=== PATIENT | female | born 1980 ===

== ENCOUNTER 2020-08-16 14:32 | Outpatient (REF) | payer MEDICAID, OTHER, SELFPAY ==
--- NOTE | ~2020-08-16 | XR_ITS ---
EXAMINATION: XR HAND, RIGHT XR HAND, LEFT CLINICAL INFORMATION: Pain in all joints of both hands. COMPARISON: None TECHNIQUE: 3 views of each hand. FINDINGS: RIGHT HAND: No significant bone, joint or soft tissue abnormality is seen. LEFT HAND: No significant bone, joint or soft tissue abnormality is seen. XR/XR hand LT min 3V IMPRESSION: Normal hands. No evidence of arthritis.
--- NOTE | ~2020-08-16 | XR_ITS ---
EXAMINATION: XR HAND, RIGHT XR HAND, LEFT CLINICAL INFORMATION: Pain in all joints of both hands. COMPARISON: None TECHNIQUE: 3 views of each hand. FINDINGS: RIGHT HAND: No significant bone, joint or soft tissue abnormality is seen. LEFT HAND: No significant bone, joint or soft tissue abnormality is seen. XR/XR hand RT min 3V IMPRESSION: Normal hands. No evidence of arthritis.
[2020-08-16 15:12] LABS: MANUAL DIFF FLAG NO
[2020-08-16 15:15] LABS: Basophils Absolute Auto 0.1 X10*3/uL (0.0-0.2); Basophils Percent Auto 1.1 % (0-2); Eosinophils Absolute Auto 0.1 X10*3/uL (0.0-0.4); Eosinophils Percent Auto 1.9 % (0-4); Hematocrit 37.7 % (37-47); Hemoglobin 13.1 g/dl (12.0-16.0); Imm Gran Abs Auto 0.02 X10*3/uL (0.00-0.03); Imm Gran Pct Auto 0.3 % (0.0-0.4); Lymphocytes Absolute Auto 2.8 X10*3/uL (1.2-4.9); Lymphocytes Percent Auto 38.5 % (20-40); Mean Corpuscular HGB Conc 34.7 g/dl (31.0-35.0); Mean Corpuscular Hemoglobin 31.7 pg (27.0-33.0); Mean Corpuscular Volume 91.3 fL (80-98); Mean Platelet Volume 9.7 fL (9.4-12.3); Monocytes Absolute Auto 0.5 X10*3/uL (0.1-1.2); Monocytes Percent Auto 7.5 % (2-11); Neutrophils Absolute Auto 3.7 X10*3/uL (2.0-8.3); Neutrophils Percent Auto 50.7 % (45-73); Platelet Count 298 X10*3/uL (160-400); Red Blood Count 4.13 X10*6/uL (4.20-5.50); Red Cell Distribution Width 11.9 % (11.0-16.0); White Blood Count 7.2 X10*3/uL (4.8-10.8)
[2020-08-16 15:16] LABS: Glucose Urine UA NEG (NEG); Leukocyte Esterase Urine NEG (NEG); Nitrite Urine NEG (NEG); Specific Gravity - Urine >= 1.030 (1.005-1.025); Urine Blood NEG (NEG); Urine Ketones NEG (NEG); Urine Protein TRACE MG/DL (NEG-TRACE)
[2020-08-16 15:17] LABS: Appearance Urine HAZY; Color Urine YELLOW
[2020-08-16 15:37] LABS: Alanine Aminotransferase 15 U/L (0-31); Albumin Level 4.1 g/dL (3.5-5.0); Alkaline Phosphatase 58 U/L (39-117); Anion Gap 10 (12-20); Aspartate Amino Transferase 21 U/L (5-31); Bilirubin Total 0.7 mg/dL (0.0-1.0); Blood Urea Nitrogen 19 mg/dL (9-16); Calcium 9.3 mg/dL (8.4-10.2); Carbon Dioxide 26 mmol/L (22-29); Chloride 108 mmol/L (96-108); Estimated Glomerular Filt Rate > 60; Glucose Random 85 mg/dL (60-115); Rheumatoid Factor < 15.0 IU/mL (<15.0); Sodium 140 mmol/L (135-145); Total Protein 7.3 g/dL (6.5-8.0)
[2020-08-16 15:57] LABS: TSH reflex Free T4 1.62 uIU/mL (0.32-4.0)
[2020-08-16 15:58] LABS: Erythrocyte Sedimentation Rate 17 MM/HR (0-20)
[2020-08-18 13:41] LABS: Anti Nuclear Antibody Screen NEGATIVE (NEGATIVE)
== END 2020-08-16 14:33 | disposition home or self-care (01) ==
LOC: HO.LAB 14:32
PROVIDERS: Absent Provider Student in an Organized Health Care Education/Training Program; PCP Student in an Organized Health Care Education/Training Program; Visit Provider General Practice
DX: M25.541 Pain in joints of right hand (principal); M25.542 Pain in joints of left hand
CPT/HCPCS: 36415; 73130; 80053; 81003; 84443; 85025; 85652; 86038; 86039; 86431

== ENCOUNTER 2022-10-09 11:32 | Outpatient (REF) | payer MEDICAID, OTHER, SELFPAY ==
[2022-10-09 15:39] LABS: Anion Gap 14 (12-20); Blood Urea Nitrogen 18 mg/dL (9-16); Calcium 9.5 mg/dL (8.4-10.2); Carbon Dioxide 20 mmol/L (22-29); Chloride 111 mmol/L (96-108); Estimated Glomerular Filt Rate > 60; Glucose Fasting 76 mg/dL (60-99); Potassium 3.6 mmol/L (3.3-5.1); Sodium 141 mmol/L (135-145)
[2022-10-09 15:43] LABS: TSH reflex Free T4 1.96 uIU/mL (0.32-4.0)
== END 2022-10-09 11:33 | disposition home or self-care (01) ==
LOC: HO.CHCLDS 11:32
PROVIDERS: Visit Provider Internal Medicine
DX: G47.9 Sleep disorder, unspecified (principal)
CPT/HCPCS: 36415; 80048; 84443

== ENCOUNTER 2022-12-18 14:26 | Outpatient (REF) | payer MEDICAID, OTHER, SELFPAY ==
--- NOTE | ~2022-12-18 | MM_ITS ---
EXAMINATION: MM SCREENING DIGITAL BREAST TOMOSYNTHESIS, BILATERAL WITH BILATERAL BREAST IMPLANTS. CLINICAL INFORMATION: Screening. Asymptomatic. COMPARISON: Mammography: This study is compared with prior examinations dating back to 2018. TECHNIQUE: Digital mammography is performed in craniocaudal and mediolateral oblique views along with computer-aided detection (CAD). Digital breast tomosynthesis is performed in implant-displaced craniocaudal and implant-displaced mediolateral oblique views along with computer-aided detection (CAD). Synthesized 2D images are generated from the tomosynthesis. FINDINGS: The breasts are heterogeneously dense, which may obscure small masses (ACR BI-RADS breast composition Category c). There are no significant masses, abnormal calcifications, or other abnormalities. There are unchanged, scattered benign calcifications in the left breast. MM/MM tomosynthesis screen imp BI IMPRESSION: No mammographic signs of malignancy. ASSESSMENT: BI-RADS BI-RADS 2 - Benign Findings RECOMMENDATION: Routine annual mammography screening. 1 year F/U This patient's information was entered into a reminder system with a target due date for their next mammogram.
== END 2022-12-18 14:27 | disposition home or self-care (01) ==
LOC: HO.MAMMO 14:26
PROVIDERS: Visit Provider Student in an Organized Health Care Education/Training Program
DX: Z12.31 Encounter for screening mammogram for malignant neoplasm of breast (principal)
CPT/HCPCS: 77063; 77067

== ENCOUNTER → 2022-12-18 14:45 | Outpatient (BNV) | payer SELFPAY | PROVIDERS: Visit Provider Radiology Diagnostic Radiology | DX: Z12.31 Encounter for screening mammogram for malignant neoplasm of breast (principal) | CPT/HCPCS: 77063; 77067 ==

== ENCOUNTER 2023-05-06 19:17 | Emergency (ER) | payer MEDICAID, OTHER, SELFPAY ==
[2023-05-06 19:27] VITALS: BP 122/74; PULSE 103; RESP 18; TEMP 37.9; O2SAT 98; BMI 27.3
--- NOTE | 2023-05-06 19:44 | ED.URI ---
HPI - URI/Sore Throat General Chief Complaint: Upper Respiratory Symptoms Stated Complaint: fever/sore throat/body aches/headache Time Seen by Provider: 05/06/23 19:44 Source: patient Mode of arrival: ambulatory Limitations: no limitations History of Present Illness HPI Narrative: Patient is a 42-year-old female who presents emergency department for evaluation of body aches, sore throat, tactile fever, chills, cough x3 days. Denies headache, dizziness, neck pain, neck stiffness, chest pain, shortness of breath, difficulty breathing, nausea, vomiting, abdominal pain, numbness or tingling of the extremities, genitourinary symptoms. Related Data Previous Rx's Medication Instructions Recorded amoxicillin 500 mg tablet 1,000 mg (2 x 500 mg) PO DAILY 10 05/06/23 days #20 tabs Allergies Allergy/AdvReac Type Severity Reaction Status Date / Time No Known Allergies Allergy Verified 05/06/23 19:26 [No Known Allergies*] Review of Systems Review of Systems: Yes all other systems are reviewed and are negative [facility] Past Medical History Attestation statement: The following information was validated with the patient. Source: old records reviewed Social History Social History Advance Directives: No Advance Directives Information Provided: No Physical Exam Vital Signs: Vital Signs: Last Vital Signs Temp 100.2 F 05/06/23 19:27 Pulse 103 H 05/06/23 19:27 Resp 18 05/06/23 19:27 BP 122/74 05/06/23 19:27 Pulse Ox 98 05/06/23 19:27 O2 Del Method Room Air 05/06/23 19:27 BMI result Body Mass Index 27.3 Appearance: Alert.?Oriented to person, place and time. No acute distress.?Normal affect. Eyes: Pupils equal, round and reactive to light.? ENT: TM normal bilaterally. Pharynx normal.?? Neck: Normal inspection.? Neck supple.??No cervical adenopathy CVS: Heart sounds normal. Normal heart rate and rhythm.? Pulses normal.?? Respiratory: No respiratory distress.? Lung sounds clear to auscultation bilaterally?? Abdomen: Soft and non-tender. Normoactive bowel sounds. Skin: Skin warm and dry.? Normal skin color.? ? Extremities: No lower extremity edema.? Neuro: Moves all extremities spontaneously. Sensation intact bilaterally. No motor deficits. Ambulates with normal steady gait. Medications Administered Discontinued Medications Generic Name Dose Route Start Last Admin Trade Name Karma PRN Reason Stop Dose Admin Amoxicillin 1,000 mg 05/06/23 20:30 05/06/23 20:43 Amoxicillin 500 Mg Capsule PO 05/06/23 20:31 1,000 mg ONCE ONE Administration Medical Decision Making Medical Decision Making [facility] Narrative: Patient is a 42-year-old female, presenting for evaluation of upper respiratory symptoms. COVID-19/influenza/RSV testing negative. Strep A testing positive, no evidence of peritonsillar or retropharyngeal abscess. At this time history and physical exam not consistent with ACS/PE/pneumonia. Well-appearing, nontoxic, afebrile, no tachycardia or tachypnea/hypoxia. Speaking clear full sentences, ambulatory with steady gait. Discussed conservative treatment including rest, hydration, Tylenol/ibuprofen as needed for fever and body aches, saline nasal spray, humidifier, [id number] cold medication. Advised to follow-up with primary care provider as needed, discussed reasons to return back to the emergency department. All questions were answered. Patient discharged home in stable condition. Provided with a return to work/school note. Offered Tamiflu Offered monoclonal antibody Differential Diagnosis Differential Diagnoses: The differential diagnosis associated with the presentation includes ( See narrative above) Admission/Observation Consideration of admission/observation: Escalation of care including admission/observation considered ( see narrative above) Lab Data [facility] Lab Attestation statement: I reviewed the patient's lab results. ( see narrative above) Labs: Lab Results 05/06/23 05/06/23 Range/Units 19:49 20:09 Influenza Type A (PCR) NEGATIVE (Negative) Influenza Type B (PCR) NEGATIVE (Negative) RSV RNA Qual (PCR) NEGATIVE (Negative) SARS-CoV-2 RNA (RT-PCR) NEGATIVE (Negative) S. pyogenes GrpA EVELIO Positive A (Negative) Prescription Management I considered prescription management with: Pain Medication ( acetaminophen/ibuprofen) Discharge Plan Discharge Clinical Impression: Acute streptococcal pharyngitis Patient Disposition: Home, Self-Care Instructions: Strep Throat (ED) Additional Instructions: COVID, flu, RSV are all negative. Strep is positive Complete the entire course of antibiotics as prescribed. You can take ibuprofen 200 mg, 3 tablets (600mg) every 6-8 hours as needed for pain, in addition to Tylenol 500 mg, 2 tablets (1,000mg) every 4-6 hours as needed for pain, but not to exceed 3 doses daily (3,000mg).? Follow-up with your primary care provider. Return back to emergency department any new or worsening symptoms or concerns. Prescriptions: New amoxicillin 500 mg tablet 1,000 mg PO DAILY 10 Days Qty: 20 0RF Referrals: Sabi Verduzco MD [Primary Care Provider] - Interventions: ED Discharge Assessment Last Done: 05/06/23 20:47 Discharge Date/Time: 05/06/23 20:48
[2023-05-06 20:19] LABS: IDNOW Serial# 6674DD1D; Strep A Nucleic Acid Positive (Negative)
[2023-05-06 20:29] LABS: Influenza A PCR NEGATIVE (Negative); Influenza B PCR NEGATIVE (Negative); Resp Syncy Virus RNA Qual PCR NEGATIVE (Negative); SARS COV2 PCR INHOUSE NEGATIVE (Negative)
[2023-05-06] MEDS: Amoxicillin 500 MG CAPSULE 1000 MG PO (20:43)
== END 2023-05-06 20:48 | disposition home or self-care (01) ==
PROVIDERS: Nurse Practitioner Family; Emergency Provider Emergency Medicine; PCP Student in an Organized Health Care Education/Training Program
DX: J02.0 Streptococcal pharyngitis (principal); R50.9 Fever, unspecified; J02.9 Acute pharyngitis, unspecified; M79.10 Myalgia, unspecified site; R51.9 Headache, unspecified; Z11.52 Encounter for screening for COVID-19; Z20.822 Contact with and (suspected) exposure to COVID-19
CPT/HCPCS: 0241U; 87651; 99283

== ENCOUNTER 2023-05-26 12:14 | Emergency (ER) | payer MEDICAID, OTHER, SELFPAY ==
--- NOTE | ~2023-05-26 | XR_ITS ---
EXAMINATION: XR CHEST CLINICAL INFORMATION: Reason for Exam right mid back pain COMPARISON: None TECHNIQUE: 2 views of the chest FINDINGS: Lines and tubes: None. Clear lungs. No pleural effusion. No pneumothorax. Normal cardiomediastinal silhouette. Visualized vertebral body heights and disc space heights appear maintained. XR/XR chest 2V IMPRESSION: 1. Clear lungs. 2. Visualized vertebral body heights and disc space heights appear maintained.
--- NOTE | ~2023-05-26 | CT_ITS ---
EXAMINATION: CT ABDOMEN AND PELVIS WITHOUT CONTRAST CLINICAL INFORMATION: Right flank pain COMPARISON: None available. TECHNIQUE: Multidetector volumetric imaging was performed from the superior aspect of the liver through the pubic symphysis. Sagittal and coronal reformatted images were obtained on the technologist's workstation. This CT examination was performed using dose optimization techniques as appropriate, variously including the following: *Automated exposure control *Adjustment of mA and/or kV according to patient size (this includes techniques or standardized protocols for targeted exams where dose is matched to indication/reason for exam; i.e. extremities or head) *Use of iterative reconstruction technique DLP: 473 mGy-cm FINDINGS: LUNG BASES: Unremarkable. ABDOMINAL AND PELVIC WALL: Bilateral breast prostheses. LIVER AND BILIARY TREE: Calcified left hepatic lobe granuloma. Liver is enlarged measuring 18.2 cm in span. GALLBLADDER: Unremarkable. PANCREAS: Unremarkable. SPLEEN: Unremarkable. ADRENAL GLANDS: Unremarkable. KIDNEYS AND URETERS: No hydronephrosis or nephrolithiasis. GASTROINTESTINAL TRACT: Large and small bowel is unremarkable. Normal appendix. VASCULAR: Unremarkable. LYMPH NODES/PERITONEUM: No lymphadenopathy. FREE FLUID: None. BLADDER: Unremarkable. PELVIC VISCERA: Uterus is retroflexed in position. Nabothian cyst in the cervix. OSSEOUS STRUCTURES: Unremarkable. CT/CT abdomen pelvis wo IV con IMPRESSION: 1. No hydronephrosis or nephrolithiasis. 2. Hepatomegaly.
[2023-05-26 12:33] VITALS: BP 134/89; PULSE 91; RESP 18; TEMP 36.4; O2SAT 98; BMI 28.3
--- NOTE | 2023-05-26 12:33 | ED_ITS ---
HPI - General Adult General Chief complaint: Back Pain/Injury Stated complaint: Back pain Time Seen by Provider: 05/26/23 13:52 Source: patient Mode of arrival: ambulatory Limitations: no limitations History of Present Illness HPI narrative: 42 year old female with no significant pmhx presents to the ED today for evaluation of right flank pain x5 days. Admits the pain has been constant, now worsening, prompting her to come in for evaluation. The pain is now radiating to her RUQ. Pain is exacerbated with movement, taking a deep breath in, and lying down. Denies trauma or injury to the area. She has not been taking any OTC pain medications at home. Denies every having these symptoms in the past. Denies history of kidney stones. Denies fever, chills, N/V, diarrhea, dysuria, hematuria, urinary frequency or urgency, back pain, LE pain/ swelling. Endorses constipation at baseline which is not new. Admits she was diagnosed with strep pharyngitis 3 weeks ago and has since completed her antibiotics. Denies sore throat, odynophagia, dysphagia or rash. Related Data Previous Rx's Medication Instructions Recorded amoxicillin 500 mg tablet 1,000 mg (2 x 500 mg) PO DAILY 10 05/06/23 days #20 tabs cyclobenzaprine 5 mg tablet 5 mg PO BEDTIME PRN muscle spasm 05/26/23 #7 tabs lidocaine 5 % topical patch 1 patch topical DAILY #15 ea 05/26/23 (Lidoderm) Allergies Allergy/AdvReac Type Severity Reaction Status Date / Time No Known Allergies Allergy Verified 05/06/23 19:26 [No Known Allergies*] Review of Systems 2 Review of Systems: Constitutional: No fever, chills, fatigue, night sweats, weight changes ENT/Mouth: No ear pain, hearing loss, nasal congestion, sinus pain, rhinorrhea, sore throat Eyes: No eye pain, swelling, redness, vision changes, discharge Cardio: No chest pain, palpitations, [place], orthopnea, peripheral edema Pulm: No SOB, cough, sputum, wheezing, dyspnea, hemoptysis GI: No nausea, vomiting, hematemesis, abdominal pain, diarrhea, constipation, hematochezia, melena : No irregular bleeding, dysuria, frequency, urgency, hesitancy, hematuria, urinary flow changes, urinary incontinence or retention, +right flank pain MSK: No back pain, neck pain, joint pain, myalgias Skin: No lesions, rashes Neuro: No weakness, numbness, paresthesias, LOC, dizziness, headache Psych: No anxiety/panic, depression, SI/HI, AH/VH All other systems reviewed and are negative. [facility] Past Medical History Attestation statement: The following information was validated with the patient. Source: old records reviewed and nursing notes reviewed Social History Social History Advance Directives: No Advance Directives Information Provided: No Physical Exam ED Vital Signs: Vital Signs - 24 hr 05/26/23 12:33 Temperature 97.5 F Pulse Rate 91 Respiratory Rate 18 Blood Pressure 134/89 Pulse Oximetry 98 Oxygen Delivery Method Room Air BMI result Body Mass Index 28.3 vital signs stable Const General: cooperative, healthy appearing, comfortable and no acute distress Nutritional Appearance: average body habitus Orientation/consciousness: patient oriented x3 Limitations: no limitations HENMT Other: + posterior oropharynx without erythema or edema, no tonsillar exudates, uvula midline Head: Yes normal to inspection, Yes normocephalic and Yes atraumatic Eyes General: appearance normal, both eyes and all related structures Conjunctivae: conjunctivae normal Sclerae: sclerae normal Pupils: Equal, round and reactive pupils present Neck Other: + no midline cervical spinous tenderness or step off deformity Neck: Yes normal visual inspection, Yes full ROM, Yes no lymphadenopathy and Yes no meningeal signs Chest Chest palpation & inspection: normal inspection of the chest, normal palpation of entire chest wall, no crepitus and no tenderness Resp Effort & Inspection: normal respiratory effort, able to speak in complete sentences and symmetric chest movement Auscultation: clear to auscultation bilaterally Cardio Rate: regular rate Rhythm: regular rhythm GI Other: + abd soft, ND/NT, no rebound or guarding. negative rovsing and mcburney point tenderness. negative miller sign. normoactive bs x4. no hepatosplenomegaly. Inspection: Yes normal to inspection General: Yes no CVA tenderness Back/Spine/Pelvis Other: + no midline spinous tenderness or step off deformity. there is both thoracic and lumbar spinous muscle tenderness to palpation. no palpable masses or warmth. Back: no CVA tenderness Skin General skin exam: no rashes or lesions noted Neuro Other: Strength 5/5 intact throughout.?No saddle anesthesia.?Sensation intact to light touch.?Neurovascular intact distally.? General: patient oriented x3, gait normal and no meningeal signs Cranial nerves: Yes Equal, round and reactive pupils present Gait exam (Neuro): Normal gait present Motor exam (neuro): 5/5 motor strength present throughout Extrem General: Yes normal to inspection, Yes full ROM, Yes capillary refill normal and Yes no calf tenderness Course Course Course Narrative: This is a rapid medical exam: Additional HPI, ROS, PE not included below will be deferred to primary provider. Patient is a 42-year-old female presenting to the ED with complaint of right mid back pain for the past 5 days. Radiates to lower back. Worse with inspiration. Worst when getting up in the morning and going to bed at night. Denies fall or heavy lifting. Symptoms began after having strep. Denies dysuria. Plan: labs, UA Reevaluation(s) Reevaluation #1: 1715- CBC without leukocytosis or left shift. No anemia. H&H stable. No acute electrolyte abnormality requiring intervention. BUN slightly elevated to 18 however creatinine wnl. normal liver function. negative for covid, flu, rsv. Chest xray is unremarkable > no evidence of acute fib fracture, pneumonia or pneumo. CT abd/ pelvis without renal/ ureteral stone. no hydronephrosis. UA without infection or blood. Renal stone unlikely however cannot definitively be excluded. PERC score of 0- unlikely PE. >> On re-evaluation, patient reports almost complete resolution of pain with flexeril and lido patch > I suspect pain is muscular in etiology. Discussed all work up results with patient. she is ambulating with steady gait in ED and moving without discomfort. Patient has remained stable throughout ED visit today. Discussed worrisome signs and symptoms and when to return to the ED. All questions answered at this time. Patient is agreeable with disposition and stable for discharge. Medications Administered Discontinued Medications Generic Name Dose Route Start Last Admin Trade Name Freq PRN Reason Stop Dose Admin Cyclobenzaprine HCl 10 mg 05/26/23 14:20 05/26/23 14:27 Cyclobenzaprine Hcl 10 Mg Tablet PO 05/26/23 14:21 10 mg ONCE ONE Administration Sodium Chloride 1,000 mls @ 999 mls/hr 05/26/23 14:30 05/26/23 16:25 Ns IV 05/26/23 15:30 Infused .Q1H1M CONRADO Infusion Ketorolac Tromethamine 30 mg 05/26/23 14:22 05/26/23 14:27 Ketorolac Tromethamine 30 Mg/Ml Vial IM 05/26/23 14:23 30 mg ONCE ONE Administration Medical Decision Making Medical Decision Making [facility] Narrative: 42 year old female with no significant pmhx presents to the ED today for evaluation of right flank pain x5 days. Vital signs stable. Patient is nontoxic appearing and in NAD. No CVAT b/l. Abdomen is soft, ND/NT, no rebound or guarding. normoactive BS x4. Negative Miller sign. negative rovsing and mcburney point tenderness. No midline spinous tenderness. There right thoracic/lumbar paraspinal muscle tenderness. no palpable masses or warmth. no midline spinous tenderness or step off deformity. Differential diagnosis includes lumbar or thoracic sprain/ strain, renal colic, nephrolithiasis, urinary tract infection. Unlikely PE, ACS, arrhythmia, obstructive uropathy, spinal fracture, cauda equina, cord compression, epidural abscess. Plan for labs, UA, imaging. Differential Diagnosis Differential Diagnoses: The differential diagnosis associated with the presentation includes as above. Admission/Observation Not indicated Lab Data [facility] Lab Attestation statement: I reviewed the patient's lab results. as above. 05/26/23 12:50 05/26/23 12:50 Labs: Lab Results 05/26/23 05/26/23 Range/Units 12:50 14:23 WBC 9.6 (4.8-10.8) X10*3/uL RBC 4.42 (4.20-5.50) X10*6/uL Hgb 13.8 (12.0-16.0) g/dl Hct 39.0 (37.0-47.0) % MCV 88.2 (80.0-98.0) fL MCH 31.2 (27.0-33.0) pg MCHC 35.4 H (31.0-35.0) g/dl RDW 12.3 (11.0-16.0) % Plt Count 335 (160-400) X10*3/uL MPV 9.3 L (9.4-12.3) fL Immature Gran % (Auto) 0.2 (0.0-0.4) % Neut % (Auto) 61.1 (45-73) % Lymph % (Auto) 30.8 (20-40) % Ware % (Auto) 6.4 (2-11) % Eos % (Auto) 0.9 (0-4) % Baso % (Auto) 0.6 (0-2) % Lymph # (Auto) 2.9 (1.2-4.9) X10*3/uL Ware # (Auto) 0.6 (0.1-1.2) X10*3/uL Eos # (Auto) 0.1 (0.0-0.4) X10*3/uL Baso # (Auto) 0.1 (0.0-0.2) X10*3/uL Abs Immat Gran (auto) 0.02 (0.00-0.03) X10*3/uL Absolute Neuts (auto) 5.8 (2.0-8.3) x10*3/uL Absolute Nucleated RBC 0.000 (0.0-0.012) X10*3/uL Nucleated RBC % (auto) 0.0 (0.0-0.2) /100WBC PT 11.3 (11.1-13.3) SEC INR 0.9 (0.9-1.1) Sodium 139 (135-145) mmol/L Potassium 3.9 (3.3-5.1) mmol/L Chloride 109 H (96-108) mmol/L Carbon Dioxide 22 (22-29) mmol/L Anion Gap 12 (12-20) BUN 18 H (9-16) mg/dL Creatinine 0.71 (0.5-1.4) mg/dL Estim Creat Clear Calc 96.6 Estimated GFR > 60 Random Glucose 104 (60-115) mg/dL Calcium 9.3 (8.4-10.2) mg/dL Total Bilirubin 0.5 (0.0-1.0) mg/dL AST 19 (5-31) U/L ALT 14 (0-31) U/L Alkaline Phosphatase 61 (39-117) U/L Total Protein 8.1 H (6.5-8.0) g/dL Albumin 4.1 (3.5-5.0) g/dL Beta HCG, Quant < 2 mIU/mL Urine Color Dark Yellow Urine Appearance Clear Urine pH 5.0 (5.0-9.0) Ur Specific [place] >= 1.030 H (1.005-1.025) Urine Protein Trace (Neg-Trace) mg/dL Urine Glucose (UA) Negative (Negative) mg/dL Urine Ketones Trace (Negative) mg/dL Urine Blood Negative (Negative) Urine Nitrite Negative (Negative) Ur Leukocyte Esterase Negative (Negative) Influenza Type A (PCR) NEGATIVE (Negative) Influenza Type B (PCR) NEGATIVE (Negative) RSV RNA Qual (PCR) NEGATIVE (Negative) SARS-CoV-2 RNA (RT-PCR) NEGATIVE (Negative) Independent Interpretation I performed an independent interpretation of an: Plain X-Ray and CT Scan Interpretation: I have reviewed cxr and agree with radiologist's interpretation. I have reviewed CT scan and agree with radiologist's interpretation. Radiology Impression Discussion of test interpretation with radiology: I have reviewed the radiologist's reading. Radiologist Impression: EXAMINATION: CT ABDOMEN AND PELVIS WITHOUT CONTRAST CLINICAL INFORMATION: Right flank pain COMPARISON: None available. TECHNIQUE: Multidetector volumetric imaging was performed from the superior aspect of the liver through the pubic symphysis. Sagittal and coronal reformatted images were obtained on the technologist's workstation. This CT examination was performed using dose optimization techniques as appropriate, variously including the following: *Automated exposure control *Adjustment of mA and/or kV according to patient size (this includes techniques or standardized protocols for targeted exams where dose is matched to indication/reason for exam; i.e. extremities or head) *Use of iterative reconstruction technique DLP: 473 mGy-cm FINDINGS: LUNG BASES: Unremarkable. ABDOMINAL AND PELVIC WALL: Bilateral breast prostheses. LIVER AND BILIARY TREE: Calcified left hepatic lobe granuloma. Liver is enlarged measuring 18.2 cm in span. GALLBLADDER: Unremarkable. PANCREAS: Unremarkable. SPLEEN: Unremarkable. ADRENAL GLANDS: Unremarkable. KIDNEYS AND URETERS: No hydronephrosis or nephrolithiasis. GASTROINTESTINAL TRACT: Large and small bowel is unremarkable. Normal appendix. VASCULAR: Unremarkable. LYMPH NODES/PERITONEUM: No lymphadenopathy. FREE FLUID: None. BLADDER: Unremarkable. PELVIC VISCERA: Uterus is retroflexed in position. Nabothian cyst in the cervix. OSSEOUS STRUCTURES: Unremarkable. CT/CT abdomen pelvis wo IV con IMPRESSION: 1. No hydronephrosis or nephrolithiasis. 2. Hepatomegaly EXAMINATION: XR CHEST CLINICAL INFORMATION: Reason for Exam right mid back pain COMPARISON: None TECHNIQUE: 2 views of the chest FINDINGS: Lines and tubes: None. Clear lungs. No pleural effusion. No pneumothorax. Normal cardiomediastinal silhouette. Visualized vertebral body heights and disc space heights appear maintained. XR/XR chest 2V IMPRESSION: 1. Clear lungs. 2. Visualized vertebral body heights and disc space heights appear maintained. Independent Historian Clinical information obtained from an independent historian. History obtained from or confirmed by: Spouse () External Record Review External record reviewed: Inpatient record Prescription Management I considered prescription management with: Pain Medication and Other (muscle relaxer) Social Determinants Patient?s care significantly limited by Social Determinants of Health including: Other Social Determinant of Health Critical Care Time Critical Care Time Critical Care Time: No Discharge Plan Discharge Clinical Impression: Strain of thoracic back region, Strain of lumbar paraspinous muscle Patient Disposition: Home, Self-Care Instructions: Muscle Strain (ED), Back Pain (ED), Lower Back Exercises (ED) Additional Instructions: Your lab work today is reassuring. Your urine is negative for infection. You tested negative for COVID, influenza, RSV. The chest x-ray is normal. As discussed, CT scan of your abdomen shows enlarged liver with calcifications. You have been advised to follow-up with your primary care provider regarding this. Avoid bending, lifting, or twisting. Use ice several times per day for 20 minutes at a time for the next 48 hours and then change to heat. Flexeril is a muscle relaxer. Take this at night as it makes you drowsy. Do not drive, drink alcohol, or operate machinery while taking it. Lidoderm patches are numbing patches. Apply to painful areas. In addition you may take Tylenol at home. Follow up with your primary care provider as needed If your pain worsens, if you develop new numbness, tingling, weakness, loss of bowel or bladder function call 911 or return to the ER immediately for evaluation. Prescriptions: New cyclobenzaprine 5 mg tablet 5 mg PO BEDTIME PRN (Reason: muscle spasm) Qty: 7 0RF lidocaine [Lidoderm] 5 % adhesive patch,medicated 1 patch topical DAILY Qty: 15 0RF Rx Instructions: leave on most painful area for up to 12 hrs No Action amoxicillin 500 mg tablet 1,000 mg PO DAILY 10 Days Qty: 20 0RF Interventions: ED Discharge Assessment Last Done: 05/26/23 17:24 Discharge Date/Time: 05/26/23 17:25
[2023-05-26 12:55] LABS: MANUAL DIFF FLAG NO
[2023-05-26 12:56] LABS: Basophils Absolute Auto 0.1 X10*3/uL (0.0-0.2); Basophils Percent Auto 0.6 % (0-2); Eosinophils Absolute Auto 0.1 X10*3/uL (0.0-0.4); Eosinophils Percent Auto 0.9 % (0-4); Hemoglobin 13.8 g/dl (12.0-16.0); Imm Gran Abs Auto 0.02 X10*3/uL (0.00-0.03); Imm Gran Pct Auto 0.2 % (0.0-0.4); Lymphocytes Absolute Auto 2.9 X10*3/uL (1.2-4.9); Lymphocytes Percent Auto 30.8 % (20-40); Mean Corpuscular HGB Conc 35.4 g/dl (31.0-35.0); Mean Corpuscular Hemoglobin 31.2 pg (27.0-33.0); Mean Corpuscular Volume 88.2 fL (80.0-98.0); Mean Platelet Volume 9.3 fL (9.4-12.3); Monocytes Absolute Auto 0.6 X10*3/uL (0.1-1.2); Monocytes Percent Auto 6.4 % (2-11); Neutrophils Absolute Auto 5.8 x10*3/uL (2.0-8.3); Neutrophils Percent Auto 61.1 % (45-73); Platelet Count 335 X10*3/uL (160-400); Red Blood Count 4.42 X10*6/uL (4.20-5.50); Red Cell Distribution Width 12.3 % (11.0-16.0); White Blood Count 9.6 X10*3/uL (4.8-10.8)
[2023-05-26 13:04] LABS: INTERNATIONAL NORM RATIO 0.9 (0.9-1.1); Prothrombin Time 11.3 SEC (11.1-13.3)
[2023-05-26 13:14] LABS: Alanine Aminotransferase 14 U/L (0-31); Albumin Level 4.1 g/dL (3.5-5.0); Alkaline Phosphatase 61 U/L (39-117); Anion Gap 12 (12-20); Aspartate Amino Transferase 19 U/L (5-31); Bilirubin Total 0.5 mg/dL (0.0-1.0); Blood Urea Nitrogen 18 mg/dL (9-16); Calcium 9.3 mg/dL (8.4-10.2); Carbon Dioxide 22 mmol/L (22-29); Chloride 109 mmol/L (96-108); Creatinine Clr Calc Pharmacy 96.6; Estimated Glomerular Filt Rate > 60; Glucose Random 104 mg/dL (60-115); Potassium 3.9 mmol/L (3.3-5.1); Sodium 139 mmol/L (135-145); Total Protein 8.1 g/dL (6.5-8.0)
[2023-05-26 13:21] LABS: HCG Quantitative < 2 mIU/mL
[2023-05-26 13:37] LABS: Influenza A PCR NEGATIVE (Negative); Influenza B PCR NEGATIVE (Negative); Resp Syncy Virus RNA Qual PCR NEGATIVE (Negative); SARS COV2 PCR INHOUSE NEGATIVE (Negative)
[2023-05-26] MEDS: Cyclobenzaprine HCl 10 MG TABLET PO (14:27)
[2023-05-26] MEDS: Ketorolac Tromethamine 30 MG/ML VIAL IM (14:27)
[2023-05-26 14:31] LABS: Appearance Urine Clear; Color Urine Dark Yellow; Glucose Urine UA Negative (Negative); Leukocyte Esterase Urine Negative (Negative); Nitrite Urine Negative (Negative); Specific Gravity - Urine >= 1.030 (1.005-1.025); Urine Blood Negative (Negative); Urine Ketones Trace mg/dL (Negative); Urine Protein Trace mg/dL (Neg-Trace)
[2023-05-26] MEDS: 0.9 % Sodium Chloride 1,000 ML 999 ML IV (14:33)
[2023-05-26 17:24] VITALS: BP 106/61; PULSE 62; RESP 16; TEMP 36.4
== END 2023-05-26 17:25 | disposition home or self-care (01) ==
PROVIDERS: Registered Nurse Emergency; Emergency Provider Emergency Medicine; PCP Student in an Organized Health Care Education/Training Program
DX: R10.11 Right upper quadrant pain (principal); M54.9 Dorsalgia, unspecified; Z11.52 Encounter for screening for COVID-19; Z20.828 Contact with and (suspected) exposure to other viral communicable diseases
CPT/HCPCS: 0241U; 71046; 74176; 80053; 81003; 84702; 85025; 85610; 96360; 96361; 96372; 99284; J1885

== ENCOUNTER 2023-12-31 15:18 | Emergency (ER) | payer MEDICAID, OTHER, SELFPAY ==
--- NOTE | ~2023-12-31 | CT_ITS ---
EXAMINATION: CT HEAD WITHOUT CONTRAST CLINICAL INFORMATION: Numbness tingling COMPARISON: CT scan of the brain April 2017 TECHNIQUE: Contiguous axial imaging was performed from the skull base to vertex without intravenous administration of contrast. This CT examination was performed using dose optimization techniques as appropriate, variously including the following: *Automated exposure control *Adjustment of mA and/or kV according to patient size (this includes techniques or standardized protocols for targeted exams where dose is matched to indication/reason for exam; i.e. extremities or head) *Use of iterative reconstruction technique DLP: 664 mGy-cm FINDINGS: There is no mass hemorrhage or cerebral edema. The ventricles and basal cisterns are normal. There is no extra-axial fluid collection. Soft tissues are normal. Osseous structures and calvarium: Normal. Sinuses clear. Mastoid air cells clear. CT/CT head/brain wo IV con IMPRESSION: No acute intracranial pathology. Electronically signed by: Mosies Bennett MD 12/31/2023 05:44 PM EDT
--- NOTE | ~2023-12-31 | CT_ITS ---
EXAMINATION: CT CERVICAL SPINE WITHOUT CONTRAST CLINICAL INFORMATION: Numbness and tingling. COMPARISON: None available. TECHNIQUE: CT scan of the cervical spine with reconstruction imaging performed at the acquisition workstation. This CT examination was performed using dose optimization techniques as appropriate, variously including the following: *Automated exposure control *Adjustment of mA and/or kV according to patient size (this includes techniques or standardized protocols for targeted exams where dose is matched to indication/reason for exam; i.e. extremities or head) *Use of iterative reconstruction technique DLP: 287 mGy-cm FINDINGS: Vertebral bodies normal in height and alignment. Facets normal. Disc spaces normal. No fracture. Surrounding soft tissues normal. CT/CT cervical spine wo IV con IMPRESSION: Unremarkable examination. Fleischner guidelines were followed. Electronically signed by: Moises Bennett MD 12/31/2023 05:46 PM EDT
[2023-12-31 15:30] VITALS: BP 130/87; PULSE 75; RESP 18; TEMP 36.6; O2SAT 98; BMI 28.3
--- NOTE | 2023-12-31 15:31 | ED.GENADULT ---
HPI - General Adult General Chief complaint: Headache Stated complaint: migraine,vomiting, tips of fingers numb Time Seen by Provider: 01/01/24 00:19 Source: patient Mode of arrival: ambulatory Limitations: no limitations History of Present Illness ED Provider: joe BAKER narrative: Patient's history of migraine headache take Topamax and sumatriptan complaining of right-sided headache for last 3 days associated with nausea tingling in the lips in the hands no weakness patient had a CT scan done prior to my evaluation which was negative no head injury no fever no chills Related Data Previous Rx's ?Medication ?Instructions ?Recorded amoxicillin 500 mg tablet 1,000 mg (2 x 500 mg) PO DAILY 10 05/06/23 days #20 tabs cyclobenzaprine 5 mg tablet 5 mg PO BEDTIME PRN muscle spasm 05/26/23 #7 tabs lidocaine 5 % topical patch 1 patch topical DAILY #15 ea 05/26/23 (Lidoderm) dwfpcqhbbs-hmxdahoenjbcp-baivfqgy 1 tab PO Q6H PRN haeadace #20 tabs 01/01/24 50 mg-325 mg-40 mg tablet ondansetron 4 mg disintegrating 4 mg PO Q6-8H PRN nausea and 01/01/24 tablet vomiting #7 tabs Allergies Allergy/AdvReac Type Severity Reaction Status Date / Time No Known Allergies Allergy Verified 12/31/23 15:34 [No Known Allergies*] Review of Systems Review of Systems: Yes all other systems are reviewed and are negative [facility] Social History Social History Advance Directives: No Advance Directives Information Provided: Yes Physical Exam ED Vital Signs: Vital Signs - 24 hr 12/31/23 15:30 12/31/23 22:00 01/01/24 02:26 Temperature 98 F 98.3 F 97.9 F Pulse Rate 75 58 55 Respiratory Rate 18 16 20 Blood Pressure 130/87 117/48 L 126/77 Pulse Oximetry 98 99 98 Oxygen Delivery Method Room Air Room Air Room Air 01/01/24 02:29 Temperature 97.9 F Pulse Rate 55 Respiratory Rate 20 Blood Pressure 126/77 Pulse Oximetry 98 Oxygen Delivery Method Room Air BMI result Body Mass Index 28.3 Appearance: Alert. Oriented X3. No acute distress. Eyes: PERRLA, No Nystagmus ENT: Pharynx normal. Oral Mucosa moist no temporal artery tenderness Neck: Normal inspection. Neck supple. CVS: Normal heart rate and rhythm. Pulses normal. Respiratory: No respiratory distress. Equal air entry bilateral, no wheezing/rales/rhonchi Abdomen: Soft and nontender. Bowel sounds are present, no mass palpable, no CVA tenderness Skin: Skin warm and dry. Normal skin color. Normal skin turgor. Extremities: No lower extremity edema. No calf tenderness Neuro: Oriented X 3. No motor deficit. No sensory deficit.No cerebellar signs , cranial nerves II-XII intact Course Course Course Narrative: RME performed by Terese Tan PA-C. Patient is a 43 year old assigned female at presenting to the emergency department with numbness and tingling. Patient states that she has been having some numbness and tingling in the face with nausea and vomiting. Detailed physical exam and review of systems are deferred to the zoo director. EKG, labs, imaging, and swabs ordered. Patient placed back in the waiting room pending room availability and results. Medications Administered Discontinued Medications Generic Name Dose Route Start Last Admin Trade Name Freq PRN Reason Stop Dose Admin Acetaminophen/Butalbital/Caffeine 1 tab 01/01/24 00:38 01/01/24 01:00 Butalb/Acetamin/Caff 50/325/40 Tablet PO 01/01/24 00:39 1 tab ONCE ONE Administration Ondansetron HCl 4 mg 01/01/24 00:38 01/01/24 01:00 Ondansetron Odt 4 Mg Tab.Rapdis TRANSLINGU 01/01/24 00:39 4 mg ONCE ONE Administration Sumatriptan Succinate 6 mg 01/01/24 00:38 01/01/24 01:00 Sumatriptan Succinate 6 Mg/0.5 Ml Vial SUBCUT 01/01/24 00:39 6 mg ONCE ONE Administration Medical Decision Making Medical Decision Making [facility] Narrative: Patient with migraine headache CT scan of the head and C-spine negative labs are stable will give her Imitrex and Fioricet Lab Data [facility] Lab Attestation statement: I reviewed the patient's lab results. 12/31/23 15:50 12/31/23 15:50 Labs: Lab Results 10/21/24 10/21/24 10/21/24 Range/Units 15:48 15:50 15:57 WBC 11.2 H (4.8-10.8) X10*3/uL RBC 4.29 (4.20-5.50) X10*6/uL Hgb 13.7 (12.0-16.0) g/dl Hct 38.6 (37.0-47.0) % MCV 90.0 (80.0-98.0) fL MCH 31.9 (27.0-33.0) pg MCHC 35.5 H (31.0-35.0) g/dl RDW 12.2 (11.0-16.0) % Plt Count 302 (160-400) X10*3/uL MPV 9.4 (9.4-12.3) fL Immature Gran % (Auto) 0.4 (0.0-0.4) % Neut % (Auto) 69.9 (45-73) % Lymph % (Auto) 23.4 (20-40) % Hand % (Auto) 5.4 (2-11) % Eos % (Auto) 0.3 (0-4) % Baso % (Auto) 0.6 (0-2) % Lymph # (Auto) 2.6 (1.2-4.9) X10*3/uL Hand # (Auto) 0.6 (0.1-1.2) X10*3/uL Eos # (Auto) 0.0 (0.0-0.4) X10*3/uL Baso # (Auto) 0.1 (0.0-0.2) X10*3/uL Abs Immat Gran (auto) 0.05 H (0.00-0.03) X10*3/uL Absolute Neuts (auto) 7.8 (2.0-8.3) x10*3/uL Absolute Nucleated RBC 0.000 (0.0-0.012) X10*3/uL Nucleated RBC % (auto) 0.0 (0.0-0.2) /100WBC Carboxyhemoglobin % 2.7 % Sodium 138 (135-145) mmol/L Potassium 3.7 (3.3-5.1) mmol/L Chloride 110 H (96-108) mmol/L Carbon Dioxide 22 (22-29) mmol/L Anion Gap 10 L (12-20) BUN 15 (9-16) mg/dL Creatinine 0.75 (0.5-1.4) mg/dL Estim Creat Clear Calc 87.0 Estimated GFR > 60 Random Glucose 90 (60-115) mg/dL Calcium 9.4 (8.4-10.2) mg/dL Magnesium 2.1 (1.6-2.6) mg/dL Total Bilirubin 0.4 (0.0-1.0) mg/dL AST 18 (5-31) U/L ALT 13 (0-31) U/L Alkaline Phosphatase 60 (39-117) U/L Total Protein 7.9 (6.5-8.0) g/dL Albumin 4.2 (3.5-5.0) g/dL Influenza Type A (PCR) NEGATIVE (Negative) Influenza Type B (PCR) NEGATIVE (Negative) RSV RNA Qual (PCR) NEGATIVE (Negative) SARS-CoV-2 RNA (RT-PCR) NEGATIVE (Negative) Discharge Plan Discharge Clinical Impression: Migraine Patient Disposition: Home, Self-Care Instructions: Migraine Headache (ED) Additional Instructions: Continue take your medication for migraine headaches Fioricet for migraine 1 tablet every 6 hours as needed Prescriptions: New agyazqpwls-lkmkjwibhyfkd-tcpo 50-325-40 mg tablet 1 tab PO Q6H PRN (Reason: haeadace) Qty: 20 0RF ondansetron 4 mg tablet,disintegrating 4 mg PO Q6-8H PRN (Reason: nausea and vomiting) Qty: 7 0RF No Action amoxicillin 500 mg tablet 1,000 mg PO DAILY 10 Days Qty: 20 0RF cyclobenzaprine 5 mg tablet 5 mg PO BEDTIME PRN (Reason: muscle spasm) Qty: 7 0RF lidocaine [Lidoderm] 5 % adhesive patch,medicated 1 patch topical DAILY Qty: 15 0RF Rx Instructions: leave on most painful area for up to 12 hrs Stand Alone Forms: Work/School Release Interventions: ED Discharge Assessment Last Done: 01/01/24 02:29 Discharge Date/Time: 01/01/24 02:31 Print Language: [place]
[2023-12-31 15:57] LABS: MANUAL DIFF FLAG NO
[2023-12-31 16:00] LABS: Basophils Absolute Auto 0.1 X10*3/uL (0.0-0.2); Basophils Percent Auto 0.6 % (0-2); Eosinophils Percent Auto 0.3 % (0-4); Hematocrit 38.6 % (37.0-47.0); Hemoglobin 13.7 g/dl (12.0-16.0); Imm Gran Abs Auto 0.05 X10*3/uL (0.00-0.03); Imm Gran Pct Auto 0.4 % (0.0-0.4); Lymphocytes Absolute Auto 2.6 X10*3/uL (1.2-4.9); Lymphocytes Percent Auto 23.4 % (20-40); Mean Corpuscular HGB Conc 35.5 g/dl (31.0-35.0); Mean Corpuscular Hemoglobin 31.9 pg (27.0-33.0); Mean Platelet Volume 9.4 fL (9.4-12.3); Monocytes Absolute Auto 0.6 X10*3/uL (0.1-1.2); Monocytes Percent Auto 5.4 % (2-11); Neutrophils Absolute Auto 7.8 x10*3/uL (2.0-8.3); Neutrophils Percent Auto 69.9 % (45-73); Platelet Count 302 X10*3/uL (160-400); Red Blood Count 4.29 X10*6/uL (4.20-5.50); Red Cell Distribution Width 12.2 % (11.0-16.0); White Blood Count 11.2 X10*3/uL (4.8-10.8)
[2023-12-31 16:00] LABS: Carbon Monoxide POC 2.7 %
[2023-12-31 16:05] LABS: Carbon Monoxide Refer to POC result
[2023-12-31 16:22] LABS: Alanine Aminotransferase 13 U/L (0-31); Albumin Level 4.2 g/dL (3.5-5.0); Alkaline Phosphatase 60 U/L (39-117); Anion Gap 10 (12-20); Aspartate Amino Transferase 18 U/L (5-31); Bilirubin Total 0.4 mg/dL (0.0-1.0); Blood Urea Nitrogen 15 mg/dL (9-16); Calcium 9.4 mg/dL (8.4-10.2); Carbon Dioxide 22 mmol/L (22-29); Chloride 110 mmol/L (96-108); Estimated Glomerular Filt Rate > 60; Glucose Random 90 mg/dL (60-115); Magnesium 2.1 mg/dL (1.6-2.6); Potassium 3.7 mmol/L (3.3-5.1); Sodium 138 mmol/L (135-145); Total Protein 7.9 g/dL (6.5-8.0)
[2023-12-31 16:38] LABS: Influenza A PCR NEGATIVE (Negative); Influenza B PCR NEGATIVE (Negative); Resp Syncy Virus RNA Qual PCR NEGATIVE (Negative); SARS COV2 PCR INHOUSE NEGATIVE (Negative)
[2023-12-31 22:00] VITALS: BP 117/48; PULSE 58; RESP 16; TEMP 36.8; O2SAT 99
[2024-01-01] MEDS: SUMAtriptan succinate 6 MG/0.5 ML VIAL SUBCUT (01:00)
[2024-01-01] MEDS: Butalb/Acetamin/Caff 50/325/40 TABLET 1 TAB PO (01:00)
[2024-01-01] MEDS: Ondansetron ODT 4 MG TAB.RAPDIS TRANSLINGU (01:00)
[2024-01-01 02:26] VITALS: BP 126/77; PULSE 55; RESP 20; TEMP 36.6; O2SAT 98
[2024-01-01 02:29] VITALS: BP 126/77; PULSE 55; RESP 20; TEMP 36.6; O2SAT 98
== END 2024-01-01 02:31 | disposition home or self-care (01) ==
PROVIDERS: Physician Assistant Medical; Emergency Provider Internal Medicine
DX: G43.909 Migraine, unspecified, not intractable, without status migrainosus (principal); R11.0 Nausea; R20.2 Paresthesia of skin; Z03.818 Encounter for observation for suspected exposure to other biological agents ruled out
CPT/HCPCS: 0241U; 70450; 72125; 80053; 82375; 83735; 85025; 96372; 99283; 99284; J3030

== ENCOUNTER 2024-03-15 08:21 | Outpatient (REF) | payer MEDICAID, OTHER, SELFPAY ==
--- NOTE | ~2024-03-15 | MM_ITS ---
EXAMINATION: MM SCREENING DIGITAL BREAST TOMOSYNTHESIS, BILATERAL CLINICAL INFORMATION: Screening. Asymptomatic. COMPARISON: Mammography: Comparison is made with relevant avialable priors. TECHNIQUE: Digital mammography is performed in craniocaudal and mediolateral oblique views along with computer-aided detection (CAD). Digital breast tomosynthesis is performed in implant-displaced craniocaudal and implant-displaced mediolateral oblique views along with computer-aided detection (CAD). FINDINGS: The breasts are heterogeneously dense, which may obscure small masses (ACR BI-RADS breast composition Category c). Bilateral retropectoral silicone implants are stable appearing. There are no significant masses, abnormal calcifications, or other abnormalities. MM/MM tomosynthesis screen imp BI IMPRESSION: There are no significant changes from prior study. ASSESSMENT: BI-RADS BI-RADS 2 - Benign Findings RECOMMENDATION: Routine annual mammography screening. 1 year F/U This patient's information was entered into a reminder system with a target due date for their next mammogram. Electronically signed by: Polly Hagen DO 03/23/2024 05:47 PM [facility]
== END 2024-03-15 08:22 | disposition home or self-care (01) ==
LOC: HO.MAMMO 08:21
PROVIDERS: PCP Student in an Organized Health Care Education/Training Program; Visit Provider Student in an Organized Health Care Education/Training Program
DX: Z12.31 Encounter for screening mammogram for malignant neoplasm of breast (principal)
CPT/HCPCS: 77063; 77067

== ENCOUNTER → 2024-03-15 08:30 | Outpatient (BNV) | payer MEDICAID, SELFPAY | PROVIDERS: PCP Student in an Organized Health Care Education/Training Program; Visit Provider Internal Medicine | DX: Z12.31 Encounter for screening mammogram for malignant neoplasm of breast (principal) | CPT/HCPCS: 77063; 77067 ==

== ENCOUNTER 2024-10-03 15:28 | Outpatient (REF) | payer MEDICAID, OTHER, SELFPAY ==
--- NOTE | ~2024-10-03 | XR_ITS ---
EXAMINATION: XR FINGER, RIGHT CLINICAL INFORMATION: FINGER PAIN COMPARISON: None available. TECHNIQUE: AP hand of the right two-view second and third digits. FINDINGS: The bones and soft tissues are unremarkable. No fracture. Alignment is anatomic. Joint spaces are maintained. XR/XR finger RT min 2V IMPRESSION: Unremarkable examination. Electronically signed by: Alexandro Campoverde MD 10/03/2024 04:15 PM EDT
--- OUTSIDE RECORDS SUMMARY | 2024-10-03 15:31 | XMS_ITS | Encounter Summary ---
Author Organization [employer] Address [address] [place] [address] Care Team Providers Care Veterans Services Specialist Name Role Phone Sabi Verduzco MD Primary Care Provider [phone] Encounter Details Date Type Department Care Team (Latest Contact Info) Description 10/03/2024 Travel Social History Tobacco Use Types Packs/Day Years Used Date Smoking Tobacco: Never Passive Smoke Exposure: Never Smokeless Tobacco: Never Alcohol Use Standard Drinks/Week Comments Never 0 (1 standard drink = 0.6 oz pur e alcohol) Depression Answer Date Recorded Patient Health Questionnaire-9 Score 12 04/18/2024 Patient Health Questionnaire-9 Score 12 04/18/2024 Last PHQ-9: Questionnaire Data Not on file 0 04/18/2024 Housing Stability Answer Date Recorded What is your housing situation today? I have josiemonster calderon 12/06/[address] you li ve. Do you have problems with any of the following? None of the above 12/06/2023 Food Insecurity Answer Date Recorded Within the past 12 months, y ou worried that your food would run out before you got money to buy more: Never True 12/06/2023 Within the past 12 months,th e food you bought just didn't last and you didn't have enough money to get more: Never True Transportation Answer Date Recorded In the past 12 months, has l ack of transportation kept you from medical appts, meetings, work or from getting things needed for daily living? No 12/06/2023 Utilities Answer Date Recorded In the past 12 months, has t he electric, gas, oil or water company threatened to shut off services in your home? No 12/06/2023 Depression Answer Date Recorded Patient Health Questionnaire-2 Score 3 04/18/2024 Internet Access Answer Date Recorded Internet Access Q1 Yes 12/06/2023 Internet Access Q2 Not on file 12/06/2023 Comments No Sex and Gender Information Value Date Recorded Sex Assigned at Female 01/09/2022 10:33 AM EDT Legal Sex Female 10:33 AM EDT Gender Identity Female 01/09/2022 10:33 AM EDT Sexual Orientation Straight 01/09/2022 10 :33 AM EDT documented as of this encounter Plan of Treatment Not on file documented as of this encounter Visit Diagnoses Not on filedocumented in this encounter Additional Health Concerns Assessment Noted Time PHQ-9 Depression Total Score: 12 025 10:01 AM EST documented as of this encounter Care Teams Veterans Services Specialist Relationship Specialty Start Date End Date Sabi Verduzco MD [address] [place] [id number] PCP - General Family Medicine 07/04/17 documented as of this encounter
== END 2024-10-03 15:29 | disposition home or self-care (01) ==
LOC: HO.XRAY 15:28
PROVIDERS: PCP Student in an Organized Health Care Education/Training Program; Visit Provider Family Medicine
DX: M79.644 Pain in right finger(s) (principal); M25.441 Effusion, right hand
CPT/HCPCS: 73140

== ENCOUNTER → 2024-10-03 15:50 | Outpatient (BNV) | payer SELFPAY | PROVIDERS: PCP Student in an Organized Health Care Education/Training Program; Visit Provider Radiology Diagnostic Radiology | DX: M79.644 Pain in right finger(s) (principal) | CPT/HCPCS: 73140 ==